=== PATIENT | female | born 1930 | race Caucasian/White ===

== ENCOUNTER 2017-11-11 10:34 | Observation (INO) ==
[2017-11-11 11:52] LABS: Baso % (Auto) 0.6 % (0.0-2.0); Eos # (Auto) 0.2 th/mm3 (0.0-0.4); Eos % (Auto) 3.7 % (0.0-4.0); Hematocrit 36.5 % (35.0-46.0); Hemoglobin 12.2 gm/dL (11.6-15.3); Lymph # (Auto) 1.7 th/mm3 (1.0-4.8); Mean Corpuscular HGB Conc 33.4 % (32.0-36.0); Mean Corpuscular Hemoglobin 31.2 pg (27.0-34.0); Mean Corpuscular Volume 93.5 fL (80.0-100.0); Mean Platelet Volume 7.7 fL (7.0-11.0); Mono # (Auto) 0.6 th/mm3 (0.0-0.9); Mono % (Auto) 10.5 % (0.0-8.0); Neut # (Auto) 3.1 th/mm3 (1.8-7.7); Neut % (Auto) 55.2 % (16.0-70.0); Platelet Count 368 th/mm3 (150-450); Red Blood Count 3.91 mil/mm3 (4.00-5.30); Red Cell Distribution Width 14.9 % (11.6-17.2); White Blood Count 5.5 th/mm3 (4.0-11.0)
[2017-11-11 12:00] LABS: Activated Partial Thrombo Time 22.6 sec (24.3-30.1); Prothrombin Time 10.4 sec (9.8-11.6)
[2017-11-11 12:07] LABS: Calcium 8.9 mg/dL (8.5-10.1); Carbon Dioxide 30.2 meq/L (21.0-32.0); Potassium 4.1 meq/L (3.5-5.1)
[2017-11-11] MEDS ORDERED: fentaNYL Citrate Inj 250 MCG/5 ML Ampul ONE (13:50)
[2017-11-11] MEDS ORDERED: Sod Chloride 0.9% Inj 1,000 ML IV.SIG SCH ×2 (14:00→17:15)
[2017-11-11] MEDS ORDERED: Atropine Inj 1 MG/10 ML Syringe ONE (14:19)
[2017-11-11] MEDS ORDERED: ceFAZolin 2 GM Premix Inj 2 GM/50 ML PIGGYBACK IV.SIG ONE (14:21)
[2017-11-11] MEDS ORDERED: *Heparin 10,000 UNITS/10 ML Vial Periprocedural ONLY ONE (15:17)
[2017-11-11] MEDS ORDERED: Acetaminophen 325 MG Tablet PO PRN (15:34)
--- NOTE | 2017-11-11 15:38 | P.RAD ---
Post Procedure Progress Note - Pre Procedure Diagnosis (1) Carotid stenosis - Post Procedure Diagnosis (1) Carotid stenosis - Procedure Information Procedure Date: 11/11/17 Supervising Radiologist: Delfino Taylor MD Assisting Physician: Alexander Morales Estimated blood loss (mL): 5 Anesthesia: Conscious Sedation - Plan of Activity Patient to Unit: Critical Care Patient Condition: Good See PACS Report for procedural detail/treatment.
--- NOTE | 2017-11-11 16:06 | P.HP ---
History of Present Illness Primary Care Physician: Lamberto Real History of Present Illness: 79-year-old white female being admitted for right carotid artery stenting and observation. Patient was in her usual state of health and referred for carotid arteries taking by her vascular surgeon. Unable to undergo endarterectomy due to history of head and neck radiation for cancer. Underwent her procedure well. Patient denies having any chest pain shortness of breath or any neurological focal deficits in the weeks leading to her procedure. Interventional radiology she has been started on Eliquis Lipitor and aspirin. Patient takes medications for blood pressure. I evaluated her post-procedure. FH: Pt cannot clearly recall any family medical problems at this time. Review of Systems All other systems reviewed negative except as stated in HPI PMFSH - History History Provided By: Patient, Family Member - Medical History Medical History: Medical History (Last Reviewed 11/11/17 @ 16:05 by Shilo Turner MD) CAD (coronary artery disease) Coronary atherosclerosis due to severely calcified coronary lesion History of hypertension History of salivary gland cancer Hypercholesterolemia MGUS (monoclonal gammopathy of unknown significance) Peripheral neuropathy - Surgical History Surgical History: Surgical History (Last Reviewed 11/11/17 @ 16:05 by Shilo Turner MD) History of breast biopsy History of cataract surgery History of cholecystectomy History of tonsillectomy Hx of laminectomy - Tobacco History Second Hand Smoke Exposure: No Tobacco Use In Past 30 Days: No Smoking Status: Former smoker Tobacco Type: Cigarettes - Alcohol History How Often Do You Have a Drink Containing Alcohol: 2 to 4 times a month - Substance Use History Substance History: No History of Abuse - Travel History Recent Travel in the [place] Within the Last 8 Weeks: No Recent Travel Out of the Country Within the Last 8 Weeks: No Medications and Allergies Active Medications: Active Medications Acetaminophen (Tylenol) 650 mg PO Q4H PRN PRN Reason: for Pain Scale 1 to 5 Amlodipine Besylate (Norvasc) 5 mg PO DAILY [place] Hydromorphone HCl (*Dilaudid Pf Inj Periprocedure Only) 0.5 mg IV PUSH Q2H [place] Stop: 11/11/17 21:46 Sodium Chloride (Ns Inj) 1,000 mls @ 100 mls/hr IV.SIG .Q10H [place] Stop: 11/11/17 23:59 Last Admin: 11/11/17 15:37 Dose: 100 mls/hr Metoprolol Tartrate (Lopressor) 50 mg PO BID [facility] Non-Formulary Medication (Irbesartan [Irbesartan]) 150 mg PO DAILY [place] Sodium Chloride (Ns Flush) 2 ml IV.FLUSH BID [place] Sodium Chloride (Ns Flush) 2 ml IV.FLUSH PRN PRN PRN Reason: FLUSH AFTER USING IV ACCESS Triamterene/HCTZ (Dyazide 37.5/25 Mg) 1 cap PO DAILY [place] Allergies Allergy/AdvReac Type Severity Reaction Status Date / Time codeine AdvReac Severe Nausea/Vomi Verified 11/11/17 11:10 ting Home Medications Medication Instructions Recorded Confirmed Type amlodipine 5 mg PO DAILY 11/11/17 11/11/17 History aspirin 325 mg PO DAILY 11/11/17 11/11/17 History atorvastatin 20 mg PO DAILY 11/11/17 11/11/17 History clopidogrel [Plavix] 75 mg PO DAILY 11/11/17 11/11/17 History irbesartan 150 mg PO DAILY 11/11/17 11/11/17 History isosorbide mononitrate 30 mg PO DAILY 11/11/17 11/11/17 History metoprolol tartrate 50 mg PO BID 11/11/17 11/11/17 History nitroglycerin 0.4 mg SUBLINGUAL PRN PRN 11/11/17 11/11/17 History triamterene-hydrochlorothiazid 1 cap PO DAILY 11/11/17 11/11/17 History [Dyazide] Exam Vital signs: Vital Signs 11/11/17 10:55 Temperature 98.5 F Pulse Rate 68 Respiratory Rate 16 Blood Pressure 198/93 H Pulse Oximetry 97 Intake & Output 11/10/17 11/11/17 11/11/17 18:59 06:59 18:59 Intake Total 50 / 50 Balance 50 / 50 Weight 65.771 kg Intake: IV 50 / 50 Ancef 2 GM Premix Inj 2 gm In 50 / 50 50 ml @ 0 mls/hr IV.SIG .STK- [facility] Rx#:[id number] Other: Weight On Admission 65.771 kg Narrative: VS: afebrile GENERAL: slightly somnolent, NAD SKIN: Warm and dry. EYES: No scleral icterus. No injection or drainage. ENT: Normocephalic, atraumatic. Carotid bruit on left, none on the right. CARDIOVASCULAR: Regular rate and rhythm. no murmurs RESPIRATORY: No accessory muscle use. Clear to auscultation. Breath sounds equal bilaterally. GASTROINTESTINAL: Abdomen soft, non-tender, nondistended. Extremities: No clubbing, cyanosis, or edema. No obvious deformities. MUSCULOSKELETAL: adequate muscle bulk and tone for age and habitus, unable to flex her right hip at this time due to groin puncture site, otherwise has intact dorsiflexion NEUROLOGICAL: Awake and alert. No obvious cranial nerve deficits. No facial droop nor slurred speech noted. PSYCHIATRIC: Appropriate mood and affect; insight and judgment normal. Results - Labs CBC & Chem 7: 11/11/17 11:25 11/12/17 03:30 Labs: Laboratory Results - last 24 hr 11/11/17 11/11/17 11/11/17 11:25 11:25 11:25 WBC 5.5 RBC 3.91 L Hgb 12.2 Hct 36.5 MCV 93.5 MCH 31.2 MCHC 33.4 RDW 14.9 Plt Count 368 MPV 7.7 Neut % (Auto) 55.2 Lymph % (Auto) 30.0 [place] % (Auto) 10.5 H Eos % (Auto) 3.7 Baso % (Auto) 0.6 Neut # (Auto) 3.1 Lymph # (Auto) 1.7 [place] # (Auto) 0.6 Eos # (Auto) 0.2 Baso # (Auto) 0.0 WBC Differential . Differential Comment Auto diff final PT 10.4 INR 1.0 APTT 22.6 L Sodium 143 Potassium 4.1 Chloride 105 Carbon Dioxide 30.2 Anion Gap 8 BUN 32 H Creatinine 1.15 H Estimated GFR 45 L Random Glucose 104 Calcium 8.9 Caprini VTE Risk Assessment Caprini VTE Risk Assessment: Moderate/High Risk (score >= 2) Caprini Risk Assessment Model: Point Value = 1 Point Value = 2 Point Value = 3 Point Value = 5 Age 41-60 Minor surgery BMI > 25 kg/m2 Swollen legs Varicose veins or History of unexplained or recurrent spontaneous Oral contraceptives or hormone replacement Sepsis (< 1 month) Serious lung disease, including pneumonia (< 1 month) Abnormal pulmonary function Acute myocardial infarction Congestive heart failure (< 1 month) History of inflammatory bowel disease Medical patient at bed rest Age 61-74 Arthroscopic surgery Major open surgery (> 45 min) Laparoscopic surgery (> 45 min) Malignancy Confined to bed (> 72 hours) Immobilizing plaster cast Central venous access Age >= 75 History of VTE Family history of VTE Factor V Leiden Prothrombin [id number] Lupus anticoagulant Anticardiolipin antibodies Elevated serum homocysteine Heparin-induced thrombocytopenia Other congenital or acquired thrombophilia Stroke (< 1 month) Elective arthroplasty Hip, pelvis, or leg fracture Acute spinal cord injury (< 1 month) Prophylaxis Regimen: Total Risk Factor Score Risk Level Prophylaxis Regimen 0-1 Low Early ambulation 2 Moderate Order ONE of the following: *Sequential Compression Device (SCD) *Heparin 5000 units SQ BID 3-4 Higher Order ONE of the following medications: *Heparin 5000 units SQ TID *Enoxaparin/Lovenox 40 mg SQ daily (WT < 150 kg, CrCl > 30 mL/min) *Enoxaparin/Lovenox 30 mg SQ daily (WT < 150 kg, CrCl > 10-29 mL/min) *Enoxaparin/Lovenox 30 mg SQ BID (WT < 150 kg, CrCl > 30 mL/min) AND/OR *Sequential Compression Device (SCD) 5 or more Highest Order ONE of the following medications: *Heparin 5000 units SQ TID (Preferred with Epidurals) *Enoxaparin/Lovenox 40 mg SQ daily (WT < 150 kg, CrCl > 30 mL/min) *Enoxaparin/Lovenox 30 mg SQ daily (WT < 150 kg, CrCl > 10-29 mL/min) *Enoxaparin/Lovenox 30 mg SQ BID (WT < 150 kg, CrCl > 30 mL/min) AND *Sequential Compression Device (SCD) Assessment and Plan - Plan 87-year-old white female being admitted for carotid artery stenting monitoring post procedure. Clinically stable upon admission. R carotid Atherosclerosis Referred to procedure by Dr. Henao, postprocedure at this time Discussed with interventional radiology, will attempt to keep blood pressure under 140 systolic, will use clonidine as needed Lipitor Aspirin and Eliquis mild NICHOLAS - had angiogram, NS, recheck RF in AM Hypertension Blood pressure control as above, resume home medications of Lopressor and diuretic and amlodipine Chronic pain Continue home medications Eliquis
[2017-11-11] MEDS: HYDROmorphone PF Inj 2 MG/ML Vial IV.PUSH SCH ×3 (17:31→20:27)
[2017-11-11] MEDS: Metoprolol Tartrate 50 MG Tablet PO SCH (20:28)
[2017-11-12 04:43] LABS: Calcium 8.5 mg/dL (8.5-10.1); Carbon Dioxide 27.5 meq/L (21.0-32.0); Potassium 3.9 meq/L (3.5-5.1)
[2017-11-12] MEDS: HYDROmorphone PF Inj 2 MG/ML Vial IV.PUSH SCH (04:46)
[2017-11-12] MEDS ORDERED: amLODIPine 5 MG Tablet PO SCH (09:00)
--- NOTE | 2017-11-12 09:23 | IR ---
EXAM DATE: 11/11/2017 4:31 PM EDT AGE/SEX: 87 years / Female INDICATIONS: 87-year-old female with history of severe carotid stenosis and previous radiation treatm ent. CLINICAL DATA: This is the patient's initial encounter. Patient reports that signs and symptoms have been present for > 1 year and indicates a pain score of 0/10. MEDICAL/SURGICAL HISTORY: . HTN, Cataracts, Cardiovascular disease, High cholesterol, Atheroscl erotic disease, Peripheral neuropathy, Salivary gland cancer. . Previous cancer surgery, Breast biop sy, Cataract removal, Cholecystectomy, Colonoscopy, Tonsillectomy. COMPARISON: TLI, CTA CAROTID ARTERIES, 10/01/2017. . FLUORO TIME (min): 22.2 IMAGE SERIES: 17 ACCESS SITE: Right Common femoral SEDATION TIME (min): 90 CONTRAST (cc): 50cc Visipaque (iodixanol) MEDICATION(S): 2 g cefazolin (Ancef) IV 250 mcg fentanyl (Sublimaze) IV 5,000 units Heparin IV 5 mg midazolam (Versed) IV DEVICE(S): Right internal carotid artery SpideRX embolic protection 5.0 mm Right internal carotid artery [employer] balloon 4.0mm x 40mm 146cm Right internal carotid artery [employer] balloon 6.0mm x 20mm 135cm Right internal carotid artery stent (self expanding) 8-6 x 40 135cm Right common femoral artery Angio-Seal 6fr . . PROCEDURE : 1. Ultrasound guided puncture of the right common femoral artery. 2. Angiography of the right common femoral artery prior to closure device. 3. Conscious sedation with continuous EKG and oximetry monitoring. 4. Percutaneous closure of the femoral artery. 5. Angiography of the left carotid artery with left cerebral angiography 6. Angiography of the right carotid artery with right cerebral angiography 7. Right carotid stent placement with distal embolic protection device The risks, benefits and alternatives to the procedure were explained and verbal and written consent w as obtained. The site was prepped in sterile fashion. Full sterile technique was used, including ca p, mask, sterile gloves and gown and a large sterile sheet. Hand hygiene and 2% chlorhexidine and/or betadine/alcohol prep was utilized per protocol for cutaneous antisepsis. Sterile gel and sterile p robe cover were utilized for ultrasound guidance. The skin and subcutaneous tissues were infiltrated with local anesthetic solution. With ultrasound and fluoroscopic guidance the <<?>> common femoral artery was punctured and a vascula r sheath was placed. Angiography of the common femoral artery was performed for evaluation prior to p ercutaneous closure device placement. The patient has a standard 3 vessel aortic arch. Left carotid angiogram demonstrates approximately 30 -40% stenosis in the origin secondary to plaque extending from the distal bulb. Right carotid artery angiogram demonstrates bulky calcified plaque extending from the bulb to the proximal internal caroti d artery with resultant approximately 80-85% stenosis. There is no ulceration or visible thrombus pre sent. The diameter of the distal internal carotid artery for reference is 6 millimeters. The percent stenosis by NASCET criteria is 80 %. 6 [place] 70 cm sheath was placed in the right common carotid art jonathan. A 5 mm spider Rx embolic protection device was deployed in the distal cervical segment. The lesi on was predilated with 4 and 6 mm balloons and subsequently an 8-6 by 40 mm self expanding stent was deployed in the right carotid artery. Follow-up angiography demonstrated excellent coverage of the le kiley without evidence for dissection or peristent stenosis. Residual less than 30% stenosis within th e stent. CT angiogram demonstrated no interval change with patent cerebral vessels. Wires and cathete rs were then removed. The puncture site was closed with a Perclose suture mediated closure device. The patient tolerated t he procedure well and there were no complications. Conscious sedation was performed with the prescribed dosages and duration as above in the presence of an independent trained radiology nurse to assist in the monitoring of the patient. EKG and oximetry remained stable throughout the procedure. CONCLUSION: 1. Uncomplicated carotid artery stent placement as above. 2. Ultrasound examination at 6, 12, 18 and 24 months following procedure should be performed to eval uate stent patency. Electronically signed by: Delfino Taylor MD 11/12/2017 9:22 AM EDT
[2017-11-12] MEDS ORDERED: Isosorbide Mononitrate 30 MG ER 24HR Tablet (Imdur) PO SCH (09:45)
[2017-11-12 10:35] VITALS: BP 163/72; RESP 15; TEMP 98.7; O2SAT 97
[2017-11-12 10:38] VITALS: PULSE 62
[2017-11-12] MEDS: Metoprolol Tartrate 50 MG Tablet PO SCH (11:05)
--- NOTE | 2017-11-12 12:01 | P.PN ---
Subjective Interval history: Nursing denies any deterioration since last night. Patient herself reports having a mild cough this morning. No fevers noted overnight. She is ambulating. Physical Exam Vital signs: Vital Signs 11/11/17 16:00 11/11/17 16:19 11/11/17 16:49 Temperature 97.1 F L Pulse Rate 71 Respiratory Rate 14 Blood Pressure 185/81 H 175/74 H 151/70 H Pulse Oximetry 97 11/11/17 17:19 11/11/17 17:49 11/11/17 18:00 Temperature 98 F Pulse Rate 60 Respiratory Rate 14 Blood Pressure 177/74 H 159/69 H 154/71 H Pulse Oximetry 98 11/11/17 18:19 11/11/17 20:00 11/11/17 22:00 Temperature 97.8 F Pulse Rate 57 L 57 L Respiratory Rate 14 Blood Pressure 140/67 156/64 H Pulse Oximetry 99 11/12/17 00:00 11/12/17 02:00 11/12/17 04:00 Temperature 98 F 98.1 F Pulse Rate 52 L 56 L 52 L Respiratory Rate 14 14 Blood Pressure 111/56 L 124/57 L Pulse Oximetry 95 94 L 11/12/17 06:00 11/12/17 08:00 11/12/17 10:00 Temperature 98.7 F Pulse Rate 56 L 70 62 Respiratory Rate 15 Blood Pressure 163/72 H Pulse Oximetry 97 Intake & Output 11/11/17 11/12/17 11/12/17 18:59 06:59 18:59 Intake Total 50 / 50 920 / 920 Output Total 225 / 225 Balance -175 / -175 920 / 920 Weight 62.3 kg 63.4 kg Intake: IV 50 / 50 500 / 500 NS Inj 1,000 ML @ 100 mls/hr IV 500 / 500 .SIG .Q10H [place] Rx#:[id number] Ancef 2 GM Premix Inj 2 gm In 50 / 50 50 ml @ 0 mls/hr IV.SIG .STK- [facility] Rx#:[id number] Oral 420 / 420 Output: Urine 225 / 225 Other: # Voids 3 Date of Last Bowel Movement 11/10/17 11/10/17 Weight On Admission 65.771 kg Narrative: Mild carotid bruit on the left No carotid bruit on the right Clear lungs bilaterally, unlabored breathing Heart sounds regular rate rhythm, no murmurs Results - Labs CBC & Chem 7: 11/11/17 11:25 11/12/17 03:30 Laboratory Results - last 24 hr 11/11/17 11/11/17 11/12/17 11:25 11:25 03:30 PT 10.4 INR 1.0 APTT 22.6 L Sodium 143 143 Potassium 4.1 3.9 Chloride 105 107 Carbon Dioxide 30.2 27.5 Anion Gap 8 9 BUN 32 H 28 H Creatinine 1.15 H 0.99 Estimated GFR 45 L 53 L Random Glucose 104 94 Calcium 8.9 8.5 - Imaging Impressions Carotid Stent with Emboli Filter 11/11/17 10:49 CONCLUSION: 1. Uncomplicated carotid artery stent placement as above. 2. Ultrasound examination at 6, 12, 18 and 24 months following procedure should be performed to evaluate stent patency. Assessment and Plan - Plan 87-year-old white female being admitted for carotid artery stenting monitoring post procedure. Clinically stable upon admission. R carotid Atherosclerosis Status post right carotid artery stenting, continue aspirin, Eliquis, Lipitor mild NICHOLAS -Resolved Patient has met maximal benefit from hospitalization and is clinically stable for discharge.
== END 2017-11-12 11:30 | disposition home or self-care (01) ==
LOC: HROP 10:34 → HRIP 10:34 → INTOOBSV 15:30 → OBSVTOIN 15:30 → N03 16:02
PROVIDERS: ADMIT Hospitalist; ATTEND Hospitalist